=== PATIENT | female | born 1980 | race Asian ===

== ENCOUNTER 2019-04-01 22:10 | Emergency (ER) | payer BC ==
[~2019-04-01] VITALS: Ht 157.5 cm; Wt 53.5 kg
[2019-04-01 22:10] VITALS: BP 120/85
--- NOTE | 2019-04-01 23:00 | NUR ---
PT AMBULATED TO BED 04.
[2019-04-01] MEDS ORDERED: LIDOCAINE MPF 1% 10 MG/ML VIAL INJ ONE (23:25)
--- NOTE | 2019-04-01 23:30 | NUR ---
38 YEAR OLD FEMALE COMPLAINS OF LEFT HAND LACERATION X 1 HOUR AGO. PATIENT STATES THAT SHE WAS COOKING AND TOUCHED A SLIGHTLY BROKEN JAR, CAUSING A SHARP CUT TO MIDDLE FINGER. FINGER ACTIVELY BLEEDING, COVERED WITH GAUZE AND PRESSURE APPLIED. PATIENT AOX4, BREATHING EVEN AND UNLABORED, SKIN WARM AND DRY. BED IN LOWEST POSITION, LOCKED, BED RAIL UPX1
--- NOTE | 2019-04-02 00:19 | NUR ---
STITCHES PLACED BY DR MILES
--- NOTE | 2019-04-02 01:30 | NUR ---
PATIENT AOX4, BREATHING EVEN AND UNLABORED
[2019-04-02] MEDS ORDERED: BACITRACIN OINT 500 UNITS/GM PKT TP ONE (01:35)
--- NOTE | 2019-04-02 01:51 | NUR ---
PT WOUND ON 3RD L DIGIT COVERED WITH NON ADHERENT DRESSING AND WRAPPED WITH COFLEX AFTER BACITRACIN APPLIED.
[2019-04-02 02:00] VITALS: BP 116/78
--- NOTE | 2019-04-02 03:27 | NUR ---
Patient discharged with v/s stable. Written and verbal after care instructions about lacerations given and explained. Patient verbalized understanding. Ambulatory with steady gait. All questions addressed prior to discharge. Advised to follow up with PMD.
== END 2019-04-02 03:27 | disposition home or self-care (01) ==
LOC: MED 22:10
DX: S61.215A Laceration without foreign body of left ring finger without damage to nail, initial encounter (principal); X58.XXXA Exposure to other specified factors, initial encounter; Y93.89 Activity, other specified; Y92.89 Other specified places as the place of occurrence of the external cause; Y99.8 Other external cause status
CPT/HCPCS: 12001; 90471; 90715; 99283; J2001